=== PATIENT | male | born 1935 | race Caucasian/White ===

== ENCOUNTER 2018-01-29 17:21 | Emergency (ER) | payer MEDICARE, OTHER ==
[~2018-01-29] VITALS: Ht 182.9 cm; Wt 79.4 kg
--- OUTSIDE RECORDS SUMMARY | 2018-01-29 17:24 | XMS REPORT | Summary of Care ---
Author Author HERNANDEZ MONDRAGON M.D. Unknown Address Unknown Phone Unavailable Care Team Providers Care Refractive Surgeon Name Role Phone BRENNAN ROSEN M.D. Unavailable HERNANDEZ MONDRAGON M.D. Unavailable Unavailable SILAS PURCELL AR, BRENNAN Connolly Unavailable Unavailable Unavailable Unavailable Functional Status Name Dates Details Functional status health issues are not documented Status: Name Dates Details Cognitive status health issues are not documented Status: Problems Name Dates Details Hematuria (599.70, R31.9) Status: Active Olecranon bursitis (726.33, M70.20) Status: Active Breast tenderness in male (611.71, N64.4) Status: Active Gynecomastia, male (611.1, N62) Status: Active Knee pain, left (719.46, M25.562) Status: Active Prostate disorder (602.9, N42.9) Status: Active Advance care planning (V65.49, Z71.89) Status: Active At low risk for fall (V49.89, Z91.81) Status: Active Depression screen (V79.0, Z13.89) Status: Active Encounter for mini-mental status examination Status: Active Lip swelling (784.2, R22.0) Status: Active Type 2 diabetes mellitus (250.00, E11.9) Status: Active BPH with obstruction/lower urinary tract symptoms (600.01, N40.1) Status: Active Influenza vaccine refused (V64.06, Z28.21) Status: Active Encounter for diabetic foot exam (250.00, E11.9) Status: Active Pneumococcal vaccination declined by patient (V64.06, Z28.21) Status: Active Dysphagia (787.20, R13.10) Status: Active Medications Name Dates Details MetFORMIN HCl - 500 MG Oral Tablet Take 1 tablet by mouth twice a day with food. Quantity: 180 SILAS Sheehan, BRENNAN * Start : 07-Jun-2014 Active Vitamin B12 TABS TAKE 1 TABLET DAILY PRN * Refills: 0 Active Finasteride 5 MG Oral Tablet TAKE 1 TABLET DAILY. * Refills: 0 Active Tamsulosin HCl - 0.4 MG Oral Capsule Take one tablet daily * Refills: 0 Active Iron TABS * Refills: 0 Active Allergies and Adverse Reactions Name Dates Details No Known Drug Allergies (Allergy) Status: Active Past Medical History Name Dates Details History of benign prostatic hypertrophy (V13.89, Z87.438) Status: Resolved History of Diabetes mellitus (250.00, E11.9) Status: Resolved History of thyroid disease (V12.29, Z86.39) Status: Resolved Procedures Procedure Dates Details GI Esophagus Barium Swallow w/ Esophagus Function 13228 Date: 19-Jan-2018 History of Tonsillectomy With Adenoidectomy Completed Immunization Name Dates Details Pneumococcal polysaccharide vaccine, 23 valent on: 30-Jun-2014 Family History Name Dates Details Family history of Stroke Complications Status: Active Name Dates Details Family history of Acute Myocardial Infarction (V17.3) Status: Active Family history of Coronary Artery Disease (V17.49) Status: Active Social History Name Dates Details - Status: Name Dates Details Former smoker Vital Signs Date Test Result Details [id number] BP Systolic 103 mm[Hg] Status: Comments: Location: LUE; Position: Sitting BP Diastolic 64 mm[Hg] Status: Comments: Location: LUE; Position: Sitting Height 73 in Status: Weight 173.6 lb Status: Body Mass Index Calculated 22.9 kg/m2 Status: Body Surface Area Calculated 2.03 m2 Status: Heart Rate 61 /min Status: Results Date Description Value Details Results not documented Plan of Care Name Dates Details Planned Observations Planned Goals not documented Planned Encounters Appointment; HERNANDEZ MONDRAGON M.D. On: 02-Feb-2018 14:45 Interventions Provided Labs/Procedures/Imaging* GI Esophagus Barium Swallow w/ Esophagus Function 31845 ; To Be Done: 19 Jan 2018 * Fiberoptic Flexible Laryngoscopy; Done: 19 Jan 2018 Plan* 82 yo M with h/o DM, now with dysphagia * - no lesions on scope exam * - barium swallow * - RTC after barium esophagram; if any abnormality, will consider referral for EGD Instructions Name Dates Details Instructions not documented Encounters Appointment; RON TEMPLE M.D. Encounter Diagnosis: Problem not documented On: 12-Feb-2016 14:00 Appointment; BRENNAN ROSEN M.D. Encounter Diagnosis: Problem not documented On: 26-Aug-2016 8:30 Appointment; BRENNAN ROSEN M.D. Encounter Diagnosis: Problem not documented On: 29-Apr-2017 10:30 Appointment; LUNA CHENEY D.O. Encounter Diagnosis: Problem not documented On: 03-Aug-2017 8:00 Appointment; BRENNAN ROSEN M.D. Encounter Diagnosis: Problem not documented On: 06-Dec-2017 14:00 Appointment; HERNANDEZ MONDRAGON M.D. Encounter Diagnosis: Problem not documented On: 19-Jan-2018 14:45
[2018-01-29] MEDS ORDERED: TETANUS/DIPHTHERIA TOX ADULT 0.5 ML SYR IM ONE (17:45)
[2018-01-29] MEDS ORDERED: LIDOCAINE 1% W/EPINEPHRINE 20 ML VIAL INJ ONE (18:00)
--- NOTE | 2018-01-29 18:27 | Diagnostic Imaging Report ---
Examination: CT BRAIN WITHOUT CONTRAST History:Fall. Comparison studies:None Technique: Axial images were obtained from the skull base to the vertex. Coronal and sagittal images reconstructed from the axial data. Intravenous contrast: None Findings: Scalp: Small right frontal scalp hematoma and laceration. Bones: No fractures, blastic or lytic lesions. Brain sulci: Mild volume loss for age. Ventricles: No hydrocephalus. Extra-axial space: No abnormalities. Parenchyma: No masses, hemorrhage, or acute or chronic cortical based vascular insults. Sellar/suprasellar region: No abnormalities. Craniocervical junction: Patent foramen magnum. No Chiari one malformation. Incidental findings: Atherosclerotic calcification of the cavernous and supraclinoid internal carotid and V4 segments of the bilateral vertebral arteries. Impression: Small right frontal scalp hematoma and laceration. No acute intracranial abnormalities. Mild volume loss for age. Signed by: Dr. Mini Caceres M.D. on 01/29/2018 6:23 PM
--- NOTE | 2018-01-29 18:29 | Diagnostic Imaging Report ---
Examination: CT Face without Contrast History:Fall. Facial injury. Comparison studies: None Technique: Axial images were obtained through the maxillofacial region. Coronal and sagittal reconstructions obtained from the axial data. Intravenous contrast: None Findings: Soft tissues: No abnormalities. Bones: No fractures or bony abnormalities. Orbits: Globes: Intact Extra or intraconal abnormalities: None. Paranasal sinuses: Mild premature mucosal thickening of the bilateral ethmoid air cells and maxillary sinuses. Nasal cavity: Patent. No septal deviation. IMPRESSION: No acute facial abnormality. Signed by: Dr. Mini Caceres M.D. on 01/29/2018 6:25 PM
--- NOTE | 2018-01-29 18:32 | Diagnostic Imaging Report ---
Examination: CT CERVICAL SPINE WITHOUT CONTRAST HISTORY:Neck pain. Fall. COMPARISON:None. TECHNIQUE: Multidetector helical axial images were obtained without contrast from the foramen magnum to T1. Coronal and sagittal reformatted images were done. Bone and soft tissue windows were evaluated. FINDINGS: Alignment:Normal alignment and lordosis. Vertebrae: Normal height and density. No acute fracture, infection or neoplasm. Disc space heights: Normal height. Caliber of spinal canal: Developmentally normal. Posterior fossa and craniocervical junction: Foramen magnum patent. No Chiari 1 malformation. Soft tissues: Partially visualized thyroid demonstrates an enlarged right thyroid lobe with areas of dystrophic calcification in the right thyroid lobe and isthmus. Degenerative changes: Moderate bilateral facet arthropathy at C3-C4. Severe right facet and uncovertebral arthropathy at C4-C5 with moderate right foraminal narrowing. Diffuse disc osteophyte complex at C5-C6 without canal stenosis. Diffuse disc osteophyte complex at C6-C7 without canal stenosis. IMPRESSION: 1. No acute abnormalities. 2. Degenerative changes, as above. Signed by: Dr. Mini Caceres M.D. on 01/29/2018 6:28 PM
[2018-01-29 19:01] VITALS: BP 127/74
== END 2018-01-29 19:00 | disposition home or self-care (01) ==
LOC: ER 17:21
DX: S01.81XA Laceration without foreign body of other part of head, initial encounter (principal); S00.81XA Abrasion of other part of head, initial encounter; S50.811A Abrasion of right forearm, initial encounter; W17.89XA Other fall from one level to another, initial encounter; Y92.008 Other place in unspecified non-institutional (private) residence as the place of occurrence of the external cause; E11.9 Type 2 diabetes mellitus without complications
CPT/HCPCS: 70450; 70486; 72125; 90714; 99283

== ENCOUNTER 2024-02-23 15:39 | Outpatient (RCR) | payer MEDICARE ==
[~2024-02-23 15:39] MED LIST: ELIQUIS5 MG PO; FINASTERIDE5 MG PO; FLOMAX0.4 MG PO; KETOROLAC TROME10 MG PO; METFORMIN HCL500 MG PO
== END 2024-03-19 | disposition home or self-care (01) ==
LOC: PT 15:39
PROVIDERS: ATTEND Internal Medicine
DX: M54.50 Low back pain, unspecified (principal); M62.81 Muscle weakness (generalized); M25.651 Stiffness of right hip, not elsewhere classified

== ENCOUNTER → 2024-11-23 | Day surgery (SDC) | payer MEDICARE ==
[~2024-11-23] MED LIST changes: +CETIRIZINE HCL10 MG PO; +FENTANYL CITRATE/PF 100MCG/2 ML INJ ONE; +LIDOCAINE HCL 2% LOCAL INJ 5 ML SDV VIAL INJ ONE; +MIDODRINE HCL10 MG PO; +ONDANSETRON HCL INJ 2MG/ML 2ML 2 MG/ML VIAL ONE; +PLAVIX75 MG PO; +PROPOFOL IV EMULSION 50 ML IV ONE; +VITAMIN B-121000 MCG PO
[2024-11-23] MEDS: LACTATED RINGER'S 1,000 ML ONE (08:55)
[2024-11-23 09:56] VITALS: TEMP 98.7
[2024-11-23 10:25] VITALS: BP 143/81; PULSE 70; RESP 16; O2SAT 100
== END | disposition home or self-care (01) ==
LOC: ENDO 07:30
PROVIDERS: ATTEND Internal Medicine Gastroenterology
DX: K22.2 Esophageal obstruction (principal); K31.7 Polyp of stomach and duodenum; K29.50 Unspecified chronic gastritis without bleeding; K20.90 Esophagitis, unspecified without bleeding; K44.9 Diaphragmatic hernia without obstruction or gangrene; Z71.3 Dietary counseling and surveillance; I10 Essential (primary) hypertension; I48.91 Unspecified atrial fibrillation; E11.9 Type 2 diabetes mellitus without complications; N40.0 Benign prostatic hyperplasia without lower urinary tract symptoms; Z01.810 Encounter for preprocedural cardiovascular examination; Z79.02 Long term (current) use of antithrombotics/antiplatelets; Z79.84 Long term (current) use of oral hypoglycemic drugs; Z79.899 Other long term (current) drug therapy; Z95.0 Presence of cardiac pacemaker; Z86.73 Personal history of transient ischemic attack (TIA), and cerebral infarction without residual deficits
CPT/HCPCS: 43239; 43450; 93005; J2003; J2405; J2470; J2704; J3010; J7121; 36415; 82948

== ENCOUNTER → 2025-01-17 | Outpatient (REF) | payer MEDICARE ==
[~2025-01-17] MED LIST changes: -FENTANYL CITRATE/PF 100MCG/2 ML INJ ONE; +HEPARIN SOD (PORCINE) 1000 UNIT/ML SDV ONE; -LIDOCAINE HCL 2% LOCAL INJ 5 ML SDV VIAL INJ ONE; -ONDANSETRON HCL INJ 2MG/ML 2ML 2 MG/ML VIAL ONE; -PROPOFOL IV EMULSION 50 ML IV ONE
== END ==
LOC: NM 08:01
PROVIDERS: ATTEND Nurse Practitioner
DX: K29.60 Other gastritis without bleeding (principal); R19.5 Other fecal abnormalities
CPT/HCPCS: 78278; A9512 ×2; J1644

== ENCOUNTER → 2025-07-12 | Day surgery (SDC) | payer MEDICARE ==
[2025-07-09 12:23] LABS: BASOPHILS % 0.8 % (0.0-1.0); EOSINOPHILS % 4.8 % (0.0-6.0); LYMPHOCYTES % 18.1 % (18.0-39.1); MONOCYTES % 8.5 % (4.4-11.3); NEUTROPHILS % 67.4 % (38.7-80.0); RED CELL DISTRIBUTION WIDTH 12.8 % (11.7-14.4)
[~2025-07-12] MED LIST changes: +ALFUZOSIN HCL10 MG PO; +ASPIRIN81 MG PO; +FAMOTIDINE20 MG PO; -HEPARIN SOD (PORCINE) 1000 UNIT/ML SDV ONE; +LIDOCAINE HCL 2% LOCAL INJ 5 ML SDV VIAL INJ ONE; +PANTOPRAZOLE SO40 MG PO; +PHENYLEPHRINE HCL 1% 10 MG/ML VIAL ONE; +PROPOFOL IV EMULSION 10 MG/ML 20 ML VIAL ONE; +SODIUM CHLORIDE 0.9% 100 ML ONE
[2025-07-12] MEDS: LACTATED RINGER'S 1,000 ML ONE (06:17)
[2025-07-12 07:26] VITALS: TEMP 97.1
[2025-07-12 07:55] VITALS: BP 150/97; PULSE 70; RESP 16; O2SAT 97
== END | disposition home or self-care (01) ==
LOC: ENDO 05:22
PROVIDERS: ATTEND Internal Medicine Gastroenterology
DX: K22.2 Esophageal obstruction (principal); K29.50 Unspecified chronic gastritis without bleeding; K22.5 Diverticulum of esophagus, acquired; K44.9 Diaphragmatic hernia without obstruction or gangrene; K21.9 Gastro-esophageal reflux disease without esophagitis; I48.91 Unspecified atrial fibrillation; E11.9 Type 2 diabetes mellitus without complications; Z71.89 Other specified counseling; Z71.3 Dietary counseling and surveillance; Z01.810 Encounter for preprocedural cardiovascular examination; Z01.812 Encounter for preprocedural laboratory examination; Z79.84 Long term (current) use of oral hypoglycemic drugs; Z79.82 Long term (current) use of aspirin; Z86.73 Personal history of transient ischemic attack (TIA), and cerebral infarction without residual deficits; Z95.818 Presence of other cardiac implants and grafts
CPT/HCPCS: 36415 ×2; 43235; 43450; 82948; 85025; 93005; J2003; J2371; J2470; J2704; J7050; J7121